=== PATIENT | male | born 1940 | race Caucasian/White ===

== ENCOUNTER 2017-11-01 13:25 | Inpatient (IN) | payer OTHER ==
[~2017-11-01] VITALS: Ht 190.5 cm; Wt 120.7 kg
--- NOTE | ~2017-11-01 | HC ---
[facility] [place] [address] CONSULTATION Name: MAX NUGENT Room #: 208-P ADM IN M.R.#: [id number] Admission: 11/01/17 Attend Phys: Reynaldo Casanova MD Discharge: Date of : 42 Report #: [id number] THIS REPORT FOR: //name// CC: FAM physician/PCP Reynaldo Casanova DATE OF SERVICE: 11/01/2017 PRIMARY CARE PHYSICIAN: Dr. Osiel Aiken. AVIATION ELECTRONIC WARFARE OPERATOR: Dr. Edward Murrell. REASON FOR CONSULTATION: Chest pain. HISTORY OF PRESENT ILLNESS: The patient is a 76-year-old man followed by Dr. Murrell in our practice. He has a remote history of coronary artery disease. He presents as a transfer from [facility] with chest pain and abnormal troponin level of 1.0. His symptoms actually began on Monday. He has had some resting chest tightness and pressure and it did resolve with rest. He thinks it lasted anywhere from 30 minutes to an hour long. Monday and Monday, he really did nothing, he had some chest discomfort and he would lie down for a couple of hours and it would go away. By Monday, he went to his doctor's office and was having angina and went to the emergency room at [facility]. He has been having elevated blood pressures. This is new for him. He attributed this to anxiety as he has had some work-related stress. His systolic pressure is in the 170s to 180s. He is not currently treated with medical therapy for high blood pressure. Prior to these episodes, he has been feeling well without chest pain, pressure or shortness of breath. PAST MEDICAL HISTORY: History of STEMI with PCI to his circumflex in 2013 with a bare-metal stent 4.0 x 12 mm [facility] via the right radial artery. He most recently had an echocardiogram which showed a basal inferior hypokinesis, EF 55%. His ECG on transfer shows a sinus rhythm with Q-waves in the inferior leads, which is unchanged from a prior outpatient study I reviewed from 01/25/2017. There are no dynamic ST-T wave abnormalities on the current study. He has hypertension. He has untreated hyperlipidemia. He apparently is statin intolerant and at one point had tried Zetia and tolerated it, but cannot afford it. He has degenerative joint disease. He had a history of back fusion last year, which went well in [facility] and he apparently is not treated for high blood pressure. He has mild carotid vascular disease. PAST SURGICAL HISTORY: As noted above back surgery, PCI. [facility] [address] [place] [address] CONSULTATION Name: MAX NUGENT Room #: 208-P [facility] IN M.R.#: [id number] Admission: 11/01/17 Attend Phys: Reynaldo Casanova MD Discharge: Date of : 41 Report #: [id number] He has really no known drug allergy. He had some issues with Brilinta, but he was able to take it for over 3 months in 2013. He said it made him feel funny, but he did not specifically complain of bronchospasm or chest pain. SOCIAL HISTORY: He is a nonsmoker. He rarely drinks. REVIEW OF SYSTEMS: GENERAL: No fevers or chills. EXTREMITIES: No edema. HEENT: No headaches or blurry vision. NEUROLOGIC: Positive anxiety. PSYCHIATRIC: No depression. RESPIRATORY: Positive dyspnea. Positive chest discomfort. No cough. CARDIOVASCULAR: Positive chest discomfort, positive discomfort with exertion. No palpitations. NEUROLOGIC: No seizures. HEMATOLOGIC: No anemia or bleeding disorders. RENAL: No history of kidney failure. GASTROINTESTINAL: No hematemesis or melena. GENITOURINARY: No dysuria or hematuria. PHYSICAL EXAMINATION: VITAL SIGNS: Blood pressure is 156/99, pulse is 77, temperature is 36.5. GENERAL: He is a pleasant elderly male. He is alert, oriented, no apparent distress. EYES: EOMs intact. No facial asymmetry. NECK: Supple. No jugular venous distention. CARDIOVASCULAR: Regular. I cannot hear a murmur or S3. LUNGS: Clear to auscultation bilaterally. ABDOMEN: Soft, nontender, nondistended. EXTREMITIES: There is no peripheral edema noted. No focal deficits. LABORATORY DATA: Electrocardiogram here at [facility] shows a sinus rhythm with normal ST segments and Q-waves in lead 3 and aVF. Hemoglobin is 15.9. Sodium is 138, potassium 3.9, chloride 104, CO2 is 27, BUN 16, creatinine is 0.9. Troponin I is 3.14. INR is 1.0. Hemoglobin is 15.9, white blood cell count is 10.1, platelet counts 222,000. Chest x-ray shows no acute cardiopulmonary abnormality. IMPRESSION: 1. Non-ST elevation myocardial infarction. He presents with stable symptoms on IV heparin and nitroglycerin. I would like to start IV beta blockers and aspirin. We will plan for a cardiac catheterization. He did well via radial artery, his prior PCI. 2. Coronary artery disease. 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 [facility] [address] [place] [address] CONSULTATION Name: MAX NUGENT Room #: 208-P [facility] IN M.R.#: [id number] Admission: 11/01/17 Attend Phys: Reynaldo Casanova MD Discharge: Date of : 41 Report #: [id number] 3. Hypertension. I will go ahead and start him on IV beta blockers for the time being and he will need to be discharged on therapy. 4. Hyperlipidemia. Apparently, he is statin intolerant. I would like to start him on Zetia. He may benefit from Crestor dose once or twice weekly along with daily Zetia or, consideration for injectables. <ELECTRONICALLY SIGNED> By: Nas Lee MD, [facility] 11/02/17 0930 1752 0203 Nas Lee MD, FAC /nt
--- NOTE | ~2017-11-01 | EKG ---
[address] [address] ELECTROCARDIOGRAM REPORT Name: MAX NUGENT Room #: 208-P ADM IN M.R.#: [id number] Admission: 11/01/17 Attend Phys: Reynaldo Casanova MD Discharge: Date of : 41 Report #: [id number] THIS REPORT FOR: //name// [facility] Test Date: 2017-11-01 Test Time: 15:59:59 Pat Name: MAX NUGENT Department: Room: 208 P Gender: M Photographer Helper: Abdiel MENDOZA : 1940 Requested By: Reynaldo Casanova Order Number: [id number] MD: Barron Mcneal Measurements Intervals [place] Rate: 73 P: 50 [place]: 156 QRS: 18 QRSD: 112 T: 1 QT: 408 QTc: 450 Interpretive Statements Sinus rhythm Early R-wave progression No previous ECG available for comparison Electronically Signed On 11-01-2017 17:13:22 CDT by Barron Mcneal [email or web address] <ELECTRONICALLY SIGNED> By: Barron Mcneal MD, [facility] 11/01/17 1713 1559 1559 Barron Mcneal MD, FACC /EPI
--- NOTE | ~2017-11-01 | EKG ---
[address] [place] [address] ELECTROCARDIOGRAM REPORT Name: MAX NUGENT Room #: 208-P ADM IN M.R.#: [id number] Admission: 11/01/17 Attend Phys: Reynaldo Casanova MD Discharge: Date of : 41 Report #: [id number] THIS REPORT FOR: //name// [facility] Test Date: 2017-11-02 Test Time: 16:41:41 Pat Name: MAX NUGENT Department: Room: 208 P Gender: M Production Artist: Abdiel MENDOZA : 1940 Requested By: Umm Ruiz Order Number: [id number] MD: Barron Mcneal Measurements Intervals [place] Rate: 65 P: 54 [place]: 159 QRS: 36 QRSD: 128 T: -2 QT: 433 QTc: 451 Interpretive Statements Sinus rhythm Borderline T abnormalities, inferior leads Compared to ECG 11/01/2017 15:59:59 No significant change was found Electronically Signed On 11-03-2017 9:15:56 CDT by Barron Mcneal [email or web address] <ELECTRONICALLY SIGNED> By: Barron Mcneal MD, [facility] [id number] 40 40 Barron Mcneal MD, [facility] /EPI
--- NOTE | ~2017-11-01 | CATHLAB ---
[facility] [address] [place] [address] INVASIVE PROCEDURE REPORT Name: MAX NUGENT Room #: 208-P ADM IN .R.#: [id number] Admission: 11/01/17 Attend Phys: Reynaldo Casanova MD Discharge: Date of : 41 Date of Service: 11/02/17 1358 Report #: [id number] THIS REPORT FOR: //name// APPROVED REPORT Study performed: 11/02/2017 09:39:53 Patient Details Patient Status: In-Patient Room #: 208 The patient is a 77 year-old male Event Personnel Jamie Newman Alining Inspector, Dee Dee Payan RN RN, Edward Sykes [place], Christine RTR Monitor, Naty Delong RTR, PROPERTY SUPERVISOR Monitor Procedures Performed Art Access - R radial artery Left Heart Cath w/or w/o Coronaries [id number] LHC , Hemostasis with Hemoband 42931 Initial Mod Sed Same Phys/QHP Gr5y 057678 90783 Mod Sed Same Phys/QHP Ea 681984 BMS Place w/wo Plasty Single CIRC 6432870 BMSSINGLE Indication Non-STEMI , Dyspnea, Chest pain Risk Factors Hypercholesterolemia, Coronary Artery DiseaseHypertension Previous Procedures/Diagnoses Previous PCI, Previous CHF, History of intolerance to statins, beta blockers and Lionel inhibitors. Procedure Narrative The Right Wrist^ was infiltrated with 1% Lidocaine subcutaneous anesthesia. A 6FR TRANSRADIAL GLIDESHEATH W/ NEEDLE #[id number] sheath was inserted into the Right Radial Artery^. Coronary angiography was performed using coronary diagnostic catheters. The right coronary system was accessed and visualized with a 5Fr. JR4 catheter. The left coronary system was accessed and visualized with a 5Fr. JL3.5 catheter. The left ventricle was accessed and visualized with a 5Fr. Pigtail catheter. Left ventricular/Aortic Valve gradient assessed via catheter pullback. Left ventriculogram was performed in 30 degree projection. Closure device was deployed with a Fr VASC BAND R 24CM #[id number]. The patient tolerated the procedure well and there were no complications associated with the procedure. There was no [place] [id number] INVASIVE PROCEDURE REPORT Name: MAX NUGENT Room #: 208-P [facility] IN [facility]#: [id number] Admission: 11/01/17 Attend Phys: Reynaldo Casanova MD Discharge: Date of : 41 Date of Service: 11/02/17 1358 Report #: [id number] hematoma. Intraoperative Conscious Sedation Sedation start time: 10:25 Case end Time: 11:36 Fentanyl 25 mcg Versed 2 mg Fluoro Time: 17.11 minutes Dose: DAP 72257.90 cGycm2 2655 mGy Contrast Type and Amount: Omnipaque 285 ml Coronary Angiography The patient's coronary anatomy is co- dominant. Diagnostic Cath Left Main Large-caliber vessel, patent with no flow-limiting lesions. LAD The proximal segment is ectatic with mild disease. The midsegment is a moderate size caliber vessel, with no flow-limiting lesions. The distal segment has mild diffuse disease, 30%. Diagonal 1 Small-caliber vessel, originating off the proximal segment of the LAD with no flow-limiting lesions. Diagonal 2 Small-caliber vessel, with no flow-limiting lesions. Circumflex codominant vessel with mild disease in the proximal segment. The mid segment is ectatic with a previously placed stent that is widely patent. The distal segment is totally occluded, just at the bifurcation of the second OM. OM1 Small-caliber vessel with a moderate ostial stenosis, recommend medical therapy. OM2 Moderate size caliber vessel, severe stenosis in the proximal segment, 70%. Right Coronary Ectatic segment in the proximal region. Mild disease in the midsegment. R PDA Small-caliber vessel, no flow-limiting lesions. Left Ventriculography The left ventricle is normal in size with normal contractility. The left ventricular ejection fraction is estimated to be 50-55%. Hemodynamics The aortic pressure is 108/77 mmHg with a mean of 92 mmHg. The left ventricular pressure is 136/8 mmHg with a mean of mmHg. The left ventricular end diastolic pressure is 21 mmHg. [facility] [address] [place] [address] INVASIVE PROCEDURE REPORT Name: MAX NUGENT Room #: 208-P [facility] IN M.R.#: [id number] Admission: 11/01/17 Attend Phys: Reynaldo Casanova MD Discharge: Date of : 41 Date of Service: 11/02/17 1358 Report #: [id number] PCI Technique Lesion Anticoagulation was achieved with Angiomax. Patient was preloaded with Brillinta. Percutaneous coronary intervention was performed on the second obtuse marginal branch segment. The lesion stenosis prior to intervention was 70% with TRACY 3 flow. A VISTA 6FR JL3.5 #807752 Guide Catheter was used to engage the ostium. A Luge Wire .014 x 182CM #[id number] Interventional Guidewire was used to cross the lesion. BALLOON DILATION A Balloon catheter Euphora RX 2.5 x 12 #[id number] was inserted and inflated up to 8.00atm for 12seconds. Additional Inflation: 8.00atm for 16seconds. STENT DEPLOYMENT A bare metal stent INTEGRITY RX 2.75 X 18 #[id number] was inserted and inflated up to 12.00atm for 24seconds. Final angiography reveals 0 % stenosis with TRACY 3 flow. PCI Technique Lesion 2 Percutaneous Coronary Intervention was performed on the distal circumflex artery segment. Patient was preloaded with Brillinta. Percutaneous coronary intervention was performed on the distal circumflex artery segment. The lesion stenosis prior to intervention was 100% with TRACY 0 flow. A VISTA 6FR JL3.5 #694608 Guide Catheter was used to engage the ostium. A Luge Wire .014 x 182CM #[id number] Interventional Guidewire was used to cross the lesion. Balloon Dilation A Balloon catheter Euphora RX 2.0 x 10 #[id number] was inserted and inflated up to 8.00atm for 21seconds. Stent Deployment A bare metal stent INTEGRITY RX 2.25 X 12 #[id number] was inserted and inflated up to 10.00atm for 20seconds. Post Stent Deployment Balloon Dilation A Balloon catheter Euphora RX 2.0 x12 #[id number] was inserted and inflated up to 14.00atm for 20seconds. Final angiography reveals 0 % stenosis with TRACY 3 flow. Conclusion 1. Successful insertion of bare metal stents into the second [facility] [address] [place] [address] INVASIVE PROCEDURE REPORT Name: MAX NUGENT Room #: 208-P ADM IN M.R.#: [id number] Admission: 11/01/17 Attend Phys: Reynaldo Casanova MD Discharge: Date of : 41 Date of Service: 11/02/17 1358 Report #: [id number] marginal artery and distal left circumflex artery. 2. Patent stent in the mid left circumflex artery. 3. Ectatic segments in all 3 major epicardial vessels. 4. Recommend dual antiplatelet therapy. <ELECTRONICALLY SIGNED> By: Jamie Newman MD 11/02/17 1358 1358 1358 Jamie Newman MD /INF
--- NOTE | ~2017-11-01 | EKG ---
[address] [address] ELECTROCARDIOGRAM REPORT Name: MAX NUGENT Room #: 208-P ADM IN M.R.#: [id number] Admission: 11/01/17 Attend Phys: Reynaldo Casanova MD Discharge: Date of : 41 Report #: [id number] THIS REPORT FOR: //name// [facility] Test Date: 2017-11-03 Test Time: 06:17:02 Pat Name: MAX NUGENT Department: Room: 208 P Gender: M Forging Operator: JOSUE : 1940 Requested By: Jamie Newman Order Number: [id number] MD: Barron Mcneal Measurements Intervals [place] Rate: 63 P: 60 [place]: 162 QRS: 52 QRSD: 116 T: 9 QT: 448 QTc: 459 Interpretive Statements Sinus rhythm Normal tracing Compared to ECG 11/01/2017 15:59:59 No significant change was found Electronically Signed On 11-03-2017 9:20:11 CDT by Barron Mcneal [email or web address] <ELECTRONICALLY SIGNED> By: Barron Mcneal MD, [facility] 11/03/17919 6 6 Barron Mcneal MD, FACC /EPI
--- NOTE | ~2017-11-01 | EKG ---
[address] [place] [address] ELECTROCARDIOGRAM REPORT Name: MAX NUGENT Room #: 208-P ADM IN M.R.#: [id number] Admission: 11/01/17 Attend Phys: Reynaldo Casanova MD Discharge: Date of : 41 Report #: [id number] THIS REPORT FOR: //name// [facility] Test Date: 2017-11-02 Test Time: 13:33:34 Pat Name: MAX NUGENT Department: Room: 208 P Gender: M Human Resources Compensation Analyst: Payam KAUFMAN : 1940 Requested By: Jamie Newman Order Number: [id number] MD: Barron Mcneal Measurements Intervals [place] Rate: 63 P: 51 [place]: 166 QRS: 47 QRSD: 107 T: 6 QT: 443 QTc: 454 Interpretive Statements Sinus rhythm Abnormal R-wave progression, early transition Compared to ECG 11/01/2017 15:59:59 No significant change was found Electronically Signed On 11-03-2017 9:12:15 CDT by Barron Mcneal [email or web address] <ELECTRONICALLY SIGNED> By: Barron Mcneal MD, [facility] [address] 32 32 Barron Mcneal MD, [facility] /EPI
--- NOTE | ~2017-11-01 | 2DMMODE ---
[facility] [address] [place] [address] 2 D/M-MODE ECHOCARDIOGRAM Name: MAX NUGENT Room #: 208-P [facility] IN ..#: [id number] Admission: 11/01/17 Attend Phys: Reynaldo Casanova MD Discharge: Date of : 41 Date of Service: 11/02/17 0921 Report #: [id number] THIS REPORT FOR: //name// APPROVED REPORT Study performed: 11/02/2017 06:19:37 EXAM: Comprehensive 2D, Doppler, and color-flow Echocardiogram Patient Location: Bedside Room #: 208 Status: routine BSA: 2.47 HR: 60 bpm BP: 118/81 mmHg Rhythm: NSR Other Information Study Quality: Adequate Indications Chest pain. Hx: CAD, stent. 2D Dimensions RVDd: 41.77 mm LVEF(%): 57.22 (>50%) IVSd: 9.78 (7-11mm) LVOT Diam: 25.89 (18-24mm) LVDd: 50.60 mm PWd: 11.41 (7-11mm) LVDs: 35.32 (25-40mm) Aortic Root: 38.37 mm Hallman's LVEF: 57.22 % Volumes Left Atrial Volume (Systole) Single Plane 4CH: 40.91 mL Single Plane 2CH: 60.09 mL LA ESV Index: 22.00 mL/m2 Aortic Valve AoV Peak Adryan.: 1.24 m/s AO Peak Gr.: 6.16 mmHg LVOT Max P.60 mmHg LVOT Max V: 0.81 m/s PHYLICIA Vmax: 3.42 cm2 Mitral Valve E/A Ratio: 0.7 MV Decel. Time: 270.71 ms [facility] [employer] [address] [place] [address] 2 D/M-MODE ECHOCARDIOGRAM Name: MAX NUGENT Room #: 208-[facility] IN .R.#: [id number] Admission: 11/01/17 Attend Phys: Reynaldo Casanova MD Discharge: Date of : 41 Date of Service: 11/02/17 0921 Report #: [id number] MV E Max Adryan.: 0.52 m/s MV A Adryan.: 0.71 m/s MV PHT: 78.51 ms IVRT: 115.34 ms Pulmonary Valve PV Peak Adryan.: 1.07 m/s PV Peak Gr.: 4.56 mmHg Pulmonary Vein P Vein S: 0.59 m/s P Vein A: 0.33 m/s P Vein D: 0.41 m/s P Vein A Dur.: 124.6 msec P Vein S/D Ratio: 1.44 Tricuspid Valve TR Peak Adryan.: 2.47 m/s RAP Estimate: 5.00 mmHg TR Peak Gr.: 24.31 mmHg PA Pressure: 29.00 mmHg Left Ventricle The left ventricle is normal size. inferior hypokinesis, otherwise normal segmental contraction all other segments Mild concentric left ventricular hypertrophy. Left ventricular systolic function is normal. LVEF is 55%. Mild diastolic dysfunction is present (impaired relaxation pattern). Right Ventricle The right ventricle is normal size. The right ventricular systolic function is normal. Atria The left atrium size is normal. The right atrium size is normal. Aortic Valve The Aortic valve is mildly sclerotic. No aortic regurgitation is present. There is no aortic valvular stenosis. Mitral Valve The mitral valve is normal in structure. Trace to mild mitral regurgitation. No evidence of mitral valve stenosis. Tricuspid Valve The tricuspid valve is normal in structure. Trace to mild tricuspid regurgitation. Estimated PAP of 30mmHg. Pulmonic Valve [address] [address] 2 D/M-MODE ECHOCARDIOGRAM Name: MAX NUGENT Room #: 208-P [facility] IN [facility]#: [id number] Admission: 11/01/17 Attend Phys: Reynaldo Casanova MD Discharge: Date of : 42 Date of Service: 11/02/17 0921 Report #: [id number] The pulmonary valve is normal in structure. Trace pulmonic regurgitation. Great Vessels Aortic root is borderline dilated. Ascending aorta is not well visualized. IVC is normal in size and collapses >50% with inspiration. Pericardium There is no pericardial effusion. <Conclusion> LVEF is 55%. inferior hypokinesis, otherwise normal segmental contraction all other segments Mild concentric left ventricular hypertrophy. The Aortic valve is mildly sclerotic. No aortic regurgitation is present. There is no aortic valvular stenosis. Trace to mild mitral regurgitation. Trace to mild tricuspid regurgitation. Estimated PAP of 30mmHg. Aortic root is borderline dilated. There is no pericardial effusion. <ELECTRONICALLY SIGNED> By: Nas Lee MD, FACC 11/02/17920 0 0 Nas Lee MD, FACC /INF
[2017-11-01 15:54] VITALS: BP 156/99
[2017-11-01 15:54] LABS: HEMATOCRIT 47.4 % (42.0-52.0); HEMOGLOBIN 15.9 gm/dL (14.0-18.0); MCH 29.2 pg (26.0-34.0); MCHC 33.6 g/dL (28.0-37.0); RBC 5.45 mil/uL (4.50-6.00); RDW 14.6 % (10.5-14.5); WBC 10.1 thou/uL (4.0-11.0)
[2017-11-01 16:01] LABS: CALCIUM 8.9 mg/dL (8.5-10.1); CREATININE 0.9 mg/dL (0.7-1.3); POTASSIUM 3.9 mmol/L (3.5-5.1)
[2017-11-01 16:10] LABS: ALBUMIN 3.7 g/dL (3.4-5.0); TOTAL BILIRUBIN 0.4 mg/dL (<0.1-1.0); TOTAL PROTEIN 7.3 g/dL (6.4-8.2)
[2017-11-01 16:13] LABS: TROPONIN-I 3.14 ng/mL (<0.06)
[2017-11-01 17:32] LABS: APTT 28.5 Seconds (24.5-32.8)
[2017-11-01] MEDS ORDERED: UNICOMPLEX M TA1 TA1 PO (17:44)
[2017-11-01] MEDS ORDERED: FISH OIL 1,001000 M2 PO (17:45)
[2017-11-01] MEDS ORDERED: RED YEAST RICE600 MG PO (17:45)
[2017-11-01] MEDS ORDERED: CHOLEST OFF PL450 MG PO (17:46)
[2017-11-01] MEDS ORDERED: ASPIR 8181 M1 PO (17:46)
[2017-11-01 17:58] LABS: CHOLESTEROL 249 mg/dL (<200); HDL CHOLESTEROL 41 mg/dL (>40); LDL CHOLESTEROL 161 mg/dL (<100); TC:HDL 6.1 Ratio (Not establshd); TRIGLYCERIDE 238 mg/dL (<150); VLDL 48 mg/dL (<40)
[2017-11-01 17:59] LABS: SERUM ASSESSMENT Clear
[2017-11-01 19:39] VITALS: BP 124/86
[2017-11-02] VITALS (18 sets, daily range): BP systolic 105–153; BP diastolic 69–94
[2017-11-03 00:21] VITALS: BP 140/75
[2017-11-03 05:01] VITALS: BP 122/77
[2017-11-03 07:50] VITALS: BP 134/77
[2017-11-03 08:58] LABS: HEMATOCRIT 48.7 % (42.0-52.0); HEMOGLOBIN 16.1 gm/dL (14.0-18.0); MCH 29.2 pg (26.0-34.0); MCHC 33.2 g/dL (28.0-37.0); MCV 88.1 fL (80.0-100.0); RBC 5.53 mil/uL (4.50-6.00); RDW 14.7 % (10.5-14.5); WBC 8.3 thou/uL (4.0-11.0)
[2017-11-03 09:15] LABS: ALBUMIN 3.6 g/dL (3.4-5.0); CALCIUM 9.4 mg/dL (8.5-10.1); CREATININE 0.9 mg/dL (0.7-1.3); POTASSIUM 4.1 mmol/L (3.5-5.1); TOTAL BILIRUBIN 0.7 mg/dL (<0.1-1.0); TOTAL PROTEIN 7.6 g/dL (6.4-8.2)
[2017-11-03 09:16] LABS: TROPONIN-I 1.41 ng/mL (<0.06)
[2017-11-03] MEDS ORDERED: BRILINTA90 MG PO (09:56)
[2017-11-03] MEDS ORDERED: ZETIA10 MG PO (09:56)
[2017-11-03 10:45] VITALS: BP 134/77
== END 2017-11-03 11:51 | disposition home or self-care (01) | DRG 248 ==
LOC: 2N 13:25 → ENTRNSPT 11-03 11:20 → EDTRNSPTSTS 11-03 11:24 → 2N 11-03 11:51
PROVIDERS: Hospitalist; Internal Medicine Cardiovascular Disease
PROC: B2151ZZ Fluoroscopy of Left Heart using Low Osmolar Contrast (ICD-10-PCS; principal; 2017-11-02)
PROC: 4A023N7 Measurement of Cardiac Sampling and Pressure, Left Heart, Percutaneous Approach (ICD-10-PCS; principal; 2017-11-02)
PROC: 02703EZ Dilation of Coronary Artery, One Artery with Two Intraluminal Devices, Percutaneous Approach (ICD-10-PCS; principal; 2017-11-02)
PROC: B2111ZZ Fluoroscopy of Multiple Coronary Arteries using Low Osmolar Contrast (ICD-10-PCS; principal; 2017-11-02)
DX: I21.4 Non-ST elevation (NSTEMI) myocardial infarction (principal); I50.33 Acute on chronic diastolic (congestive) heart failure; I11.0 Hypertensive heart disease with heart failure; E78.5 Hyperlipidemia, unspecified; M19.90 Unspecified osteoarthritis, unspecified site; I25.10 Atherosclerotic heart disease of native coronary artery without angina pectoris; Z95.5 Presence of coronary angioplasty implant and graft; Z79.899 Other long term (current) drug therapy
CPT/HCPCS: 10081